=== PATIENT | male | born 1965 | race Caucasian/White ===

== ENCOUNTER 2023-10-29 11:44 | Emergency (ER) | payer BC ==
--- NOTE | 2023-10-29 12:18 | ED Physician Documentation ---
PD HPI CHEST PAIN - Stated complaint Stated Complaint: RAPID HR - Chief complaint Chief Complaint: Cardiac - History obtained from History obtained from: Patient - History of Present Illness Timing - onset: Today Timing - details: Abrupt onset Associated symptoms: Feeling faint / dizzy, Palpitations Similar symptoms before: Diagnosis (He has had recurrent SVT. This has been found on Zio patch. He has also had echocardiogram. 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 svt episodes - Past Surgical History Past Surgical History: Yes - Allergies Allergies/Adverse Reactions: Allergies Allergy/AdvReac Type Severity Reaction Status Date / Time iodine Allergy Anaphylaxis Verified 10/29/23 11:54 peanut Allergy Anaphylaxis Verified 10/29/23 11:54 shellfish derived Allergy Anaphylaxis Verified 10/29/23 11:54 - Social History Does the pt smoke?: No Smoking Status: Never smoker ETOH Use: Wine - Immunizations Immunizations are current?: Yes PD ED PE NORMAL - Vitals Vital signs reviewed: Yes - General General: Alert and oriented X 3, No acute distress, Well developed/nourished - Cardiac Cardiac: No murmur. No: RRR (fast and regular) - Respiratory Respiratory: No respiratory distress, Clear bilaterally - Abdomen Abdomen: Soft, Non tender - Derm Derm: Normal color, Warm and dry - Extremities Extremities: No edema, No calf tenderness / cord - Neuro Neuro: Alert and oriented X 3, Normal speech Results - Vitals Vitals: Vital Signs - 24 hr 10/29/23 10/29/23 10/29/23 11:49 12:23 13:00 Temperature 36.5 C Heart Rate 124 H 123 H 124 H Respiratory 20 16 17 Rate Blood Pressure 117/80 82/67 L 84/71 L O2 Saturation 99 98 97 10/29/23 10/29/23 10/29/23 13:30 14:00 14:30 Temperature Heart Rate 56 L 58 L 57 L Respiratory 15 16 15 Rate Blood Pressure 97/68 106/74 O2 Saturation 96 97 98 Oxygen O2 Source Room air - EKG (time done) 11:58 EKG releavant findings:: EKG personally interpreted by author of this note. Relevant findings are: Rate: Rate (enter#) (1221) Rhythm: SVT QRS: Normal Ischemia: Normal ST segments. No: ST elevation c/w ischemia, ST depression - Labs Labs: Laboratory Tests 10/29/23 10/29/23 10/29/23 12:25 12:25 12:25 WBC 5.8 RBC 5.36 Hgb 16.3 Hct 48.3 MCV 90.1 MCH 30.4 MCHC 33.7 RDW 13.2 Plt Count 200 MPV 9.0 Neut # (Auto) 3.0 Lymph # (Auto) 1.6 [place] # (Auto) 0.7 Eos # (Auto) 0.4 Baso # (Auto) 0.0 Absolute Nucleated RBC 0.00 Nucleated RBC % 0.0 Sodium 136 Potassium 4.5 Chloride 106 Carbon Dioxide 24 Anion Gap 6.0 BUN 18 Creatinine 0.9 Estimated GFR (MDRD) 86 L Glucose 110 H Calcium 9.6 Magnesium 1.9 Total Bilirubin 0.8 AST 22 ALT 34 Alkaline Phosphatase 65 Troponin I High Sens 4.2 Total Protein 7.1 Albumin 4.1 Globulin 3.0 Albumin/Globulin Ratio 1.4 Lipase 40 PD Medical Decision Making - ED course Complexity details: re-evaluated patient (The patient had taken extra metoprolol short acting this morning. His blood pressure was a little bit on the soft side so I did not attempt further metoprolol. He says adenosine has worked before. He had an IV started and we are about to give the adenosine when he converted to sinus rhythm. ), considered differential (Patient with paroxysmal SVT. He typically takes metoprolol daily and has a as needed short acting metoprolol for episodes. He had taken that this morning without improvement. Tried Valsalva without improvement.), d/w patient Reviewed Lab Results: Basic blood count and electrolytes were good. He has had recurrent SVT in the past and sees a perinatal director and is being considered for ablation with an EPS cardiology appointment in October. No further medications or such were given at this time. Departure - Departure Disposition: 01 Home, Self Care Clinical Impression: Paroxysmal SVT (supraventricular tachycardia), PVCs (premature ventricular contractions) Condition: Stable Record reviewed to determine appropriate education?: Yes Follow-Up: SUSAN SOLIZ MD [Primary Care Provider] - Comments: Continue with your current medications. Rest and stay well-hydrated through the day today. You will probably experience a bit more lightheadedness or such then you may normally because of the added metoprolol doses. They should wear off through the day. Return if recurrent symptoms. Forms: PCP List Discharge Date/Time: 10/29/23 14:50
[2023-10-29 12:29] LABS: BASOPHILS % (AUTO) 0.5 %; EOSINOPHILS # (AUTO) 0.4 10^3/uL (0.0-0.7); EOSINOPHILS % (AUTO) 7.5 %; HCT - HEMATOCRIT 48.3 % (42.0-52.0); HGB - HEMOGLOBIN 16.3 g/dL (14.0-18.0); LYMPHOCYTES # (AUTO) 1.6 10^3/uL (1.5-3.5); LYMPHOCYTES % (AUTO) 27.3 %; MEAN CORPUSCULAR HEMOGLOBIN 30.4 pg (27.0-31.0); MEAN CORPUSCULAR HGB CONC 33.7 g/dL (32.0-36.0); MEAN CORPUSCULAR VOLUME 90.1 fL (80.0-94.0); MONOCYTES # (AUTO) 0.7 10^3/uL (0.0-1.0); NEUTROPHILS % (AUTO) 52.4 %; PLT - PLATELET COUNT 200 10^3/uL (130-450); RED BLOOD COUNT 5.36 10^6/uL (4.70-6.10); RED CELL DISTRIBUTION WIDTH 13.2 % (12.0-15.0); WHITE BLOOD COUNT 5.8 x10^3/uL (4.8-10.8)
[2023-10-29 12:43] VITALS: O2SAT 98
[2023-10-29 12:50] LABS: ALBUMIN 4.1 g/dL (3.2-5.5); ALBUMIN/GLOBULIN RATIO 1.4 (1.0-2.2); BILIRUBIN,TOTAL 0.8 mg/dL (0.2-1.0); CALCIUM 9.6 mg/dL (8.5-10.3); CREATININE 0.9 mg/dL (0.6-1.3); POTASSIUM 4.5 mmol/L (3.5-4.5); TOTAL PROTEIN 7.1 g/dL (6.4-8.9)
[2023-10-29 12:52] LABS: TROPONIN I HIGH SENSITIVITY 4.2 ng/L (2.3-19.7)
--- NOTE | 2023-10-29 12:59 | XRAY Report ---
PROCEDURE: Chest 1V INDICATIONS: Chest pain TECHNIQUE: One view of the chest was acquired. COMPARISON: None. FINDINGS: Surgical changes and devices: None. Lungs and pleura: Low lung volumes. No dense consolidation or pleural effusion. Mediastinum: Normal heart size Bones and chest wall: Degenerative changes. IMPRESSION: Limited single view portable radiograph without acute abnormality. Reviewed by: Neel Montoya MD on 10/29/2023 12:57 PM PDT Approved by: Neel Montoya MD on 10/29/2023 12:57 PM PDT Station ID: [id number]
[2023-10-29] MEDS: SODIUM CHLORIDE 0.9% 1,000 ML IV STA (13:07)
[2023-10-29] MEDS: ADENOSINE 6 MG/2 ML VIAL IVP STA (13:31)
[2023-10-29 14:58] VITALS: BP 106/74
== END 2023-10-29 14:50 | disposition home or self-care (01) ==
LOC: ED 11:44
DX: I47.19 Other supraventricular tachycardia (principal); I49.3 Ventricular premature depolarization
CPT/HCPCS: 36415; 71045; 80053; 83690; 83735; 84484; 85025; 93005; 99283; 99284; J0153